=== PATIENT | male | born 1995 | race Caucasian/White ===

== ENCOUNTER 2016-11-13 21:49 | Emergency (ER) | payer OTHER ==
[~2016-11-13] VITALS: Ht 167.6 cm; Wt 57.1 kg
[2016-11-14] MEDS ORDERED: VIBRAMYCIN100 MG PO (00:30)
[2016-11-14 00:42] VITALS: BP 146/102
== END 2016-11-14 00:43 | disposition home or self-care (01) ==
LOC: EME 21:49
DX: N45.3 Epididymo-orchitis (principal)
CPT/HCPCS: 76870; 99281; 99283; J0696